=== PATIENT | male | born 1995 | race Hispanic/Latino ===

== ENCOUNTER 2023-06-04 15:49 | Emergency (ER) | payer SELFPAY ==
[2023-06-04] MEDS ORDERED: BUPIVACAINE 0.5% PF 10 ML VIAL ONE (16:05)
[2023-06-04] MEDS ORDERED: LIDOCAINE 1% MPF 5 ML VIAL ONE (16:05)
--- NOTE | 2023-06-04 17:00 | ER ---
Nurse's Notes [facility] Name: Zach Cadet Age: 28 yrs Sex: Male : 1995 Arrival Date: 06/04/2023 Time: 15:49 Bed 14 Private MD: Diagnosis: Laceration without foreign body of right index finger without damage to nail Presentation: 06/03 15:52 Chief complaint: EMS states: patient was passing metal scaffolding and has a laceration cp4 to the right index finger. Coronavirus screen: Client denies travel out of the [place] in the last 14 days. At this time, the client does not indicate any symptoms associated with coronavirus-19. Ebola Screen: Patient negative for fever greater than or equal to 101.5 degrees Fahrenheit, and additional compatible Ebola Virus Disease symptoms Patient denies exposure to infectious person. Patient denies travel to an Ebola-affected area in the 21 days before illness onset. No symptoms or risks identified at this time. Initial Sepsis Screen: Does the patient meet any 2 criteria? No. Patient's initial sepsis screen is negative. Does the patient have a suspected source of infection? No. Patient's initial sepsis screen is negative. Risk Assessment: Do you want to hurt yourself or someone else? Patient reports no desire to harm self or others. Onset of symptoms was June 04, 2023. 15:52 Method Of Arrival: EMS: [facility] 15:52 Acuity: PHI 4 cp4 Triage Assessment: 15:54 General: Appears uncomfortable, Behavior is calm, cooperative, appropriate for age. cp4 Pain: Complains of pain in dorsal aspect of distal phalanx of right index finger and dorsal aspect of middle phalanx of right index finger Pain currently is 8 out of 10 on a pain scale. Musculoskeletal: laceration Reports pain in dorsal aspect of distal phalanx of right index finger and dorsal aspect of middle phalanx of right index finger. Injury Description: Laceration sustained to dorsal aspect of distal phalanx of right index finger, dorsal aspect of middle phalanx of right index finger and right index fingernail. Historical: - Allergies: 15:54 No Known Allergies; cp4 - Immunization history:: Adult Immunizations up to date. - Infectious Disease History:: Denies. CDIFF, C. Auris, ESBL, MRSA (w/in 1 year), VRE (w/in 1 year), TB, . - Social history:: Smoking status: Patient denies any tobacco usage or history of. Screenin:57 [facility] ED Fall Risk Assessment (Adult) History of falling in the last 3 months, cp4 including since admission No falls in past 3 months (0 pts) Confusion or Disorientation No (0 pts) Intoxicated or Sedated No (0 pts) Impaired Gait No (0 pts) Mobility Assist Device Used No (0 pt) Altered Elimination No (0 pt) Score/Fall Risk Level 0 - 2 = Low Risk Oriented to surroundings, Maintained a safe environment, Assessed \T\ reinforced patient's understanding of fall precautions, Hourly rounding (assess needs \T\ fall precautionary measures) done. Abuse screen: Denies threats or abuse. Nutritional screening: No deficits noted. Tuberculosis screening: No symptoms or risk factors identified. Assessment: 15:57 Reassessment: No changes from previously documented assessment. General:. cp4 17:07 Reassessment: Patient advised by [facility] health safety specialist to go to their provider. Patient cp4 discharged. Vital Signs: 15:52 BP 125 / 86; Pulse 54; Resp 16; Temp 98; Pulse Ox 98% ; cp4 ED Course: 15:51 Patient arrived in ED. cp4 15:52 Lesley Phillips is Primary Nurse. cp4 15:52 Nancy Salmeron FNP-C is PHCP. kb 15:52 Sudarshan Cardozo MD is Attending Physician. kb 15:54 Triage completed. cp4 15:54 Arm band placed on left wrist. Patient placed in an exam room, on a stretcher. cp4 15:57 Bed in low position. Call light in reach. Side rails up X 1. Provided Education on: cp4 finger laceration. 15:57 No provider procedures requiring assistance completed. Maintain EMS IV. Dressing cp4 intact. Good blood return noted. Site clean \T\ dry. Gauge \T\ site: 20 G LAC. 17:08 intact, bleeding controlled, No redness/swelling at site. Pressure dressing applied. cp4 Administered Medications: 17:07 Not Given (Patient Refused): boostrix tdap0.5 ml IM once; as a single dose cp4 17:08 Not Given (Patient Refused): bupivacaine(0.5 %) 1 vials 10 ml Infiltration once cp4 17:08 Not Given (Patient Refused): lidocaine(1 %) 1 vials 5 ml Infiltration once; to bedside cp4 Medication: 15:57 VIS not applicable for this client. cp4 Outcome: 16:59 Discharge ordered by . enriqueta 17:08 Discharged to home ambulatory, cp4 17:08 Condition: stable 17:08 Discharge instructions given to patient, Instructed on discharge instructions, follow up and referral plans. Demonstrated understanding of instructions, follow-up care, 17:11 Patient left the ED. cp4 Signatures: Nancy Salmeron, JOSE R RECLAMATION FURNACE OPERATOR-Lesley Henning cp4
--- NOTE | 2023-06-04 17:00 | EDPHYS ---
Physician Documentation [facility] Name: Zach Cadet Age: 28 yrs Sex: Male : 1995 Arrival Date: 06/04/2023 Time: 15:49 Bed 14 Private MD: ED Physician Sudarshan Cardozo HPI: 06/03 16:10 This 28 yrs old Male presents to ER via EMS with complaints of Finger Injury. kb 16:10 Pt is a 28 year old male who presents for laceration to right index finger after kb getting it pinched between 2 pieces of metal. Denies any other injury. Full ROM of fingers. . Historical: - Allergies: 15:54 No Known Allergies; cp4 - Immunization history:: Adult Immunizations up to date. - Infectious Disease History:: Denies. CDIFF, C. Auris, ESBL, MRSA (w/in 1 year), VRE (w/in 1 year), TB, . - Social history:: Smoking status: Patient denies any tobacco usage or history of. ROS: 16:07 Constitutional: As per HPI kb Exam: 16:07 Constitutional: This is a well developed, well nourished patient who is awake, alert, kb and in no acute distress. Head/Face: Normocephalic, atraumatic. ENT: Moist Mucous membranes Cardiovascular: Regular rate Respiratory: Respirations even and unlabored. No increased work of breathing. Talking in full sentences MS/ Extremity: Pulses equal, no cyanosis. Neurovascular intact. Full, normal range of motion. Neuro: Awake and alert, GCS 15, oriented to person, place, time, and situation. Moves all extremities. Normal gait. 16:10 Skin: injury, laceration(s), the wound is approximately 1.5 cm(s), of the palmar kb aspect of distal phalanx of right index finger, that can be described as clean, no foreign body, irregular, without bleeding, Vital Signs: 15:52 BP 125 / 86; Pulse 54; Resp 16; Temp 98; Pulse Ox 98% ; cp4 MDM: 15:52 Patient medically screened. kb 16:10 Data reviewed: vital signs, nurses notes. kb 16:57 Differential diagnosis: superficial laceration, avulsion, amputation. Historians other kb than the Patient: EMS: [facility]. Counseling: I had a detailed discussion with the patient and/or guardian regarding the historical points, exam findings, and any diagnostic results supporting the discharge/admit diagnosis, the need for outpatient follow up, a family practitioner, to return to the emergency department if symptoms worsen or persist or if there are any questions or concerns that arise at home. ED course: I went in to perform procedure and pt states he would like to leave to go to the [facility] for repair. Does not want any other treatment at this time. [employer] staff at bedside [facility]. 06/03 15:53 Order name: Dressing - Wound; Complete Time: 16:16 kb 06/03 15:53 Order name: Gloves, Sterile: size 6; Complete Time: 16:16 kb 06/03 15:53 Order name: Prolene, Sutures: 4.0 prolene; Complete Time: 16:16 kb 06/03 15:53 Order name: Setup Suture Tray; Complete Time: 16:16 kb Administered Medications: 17:07 Not Given (Patient Refused): boostrix tdap0.5 ml IM once; as a single dose cp4 17:08 Not Given (Patient Refused): bupivacaine(0.5 %) 1 vials 10 ml Infiltration once cp4 17:08 Not Given (Patient Refused): lidocaine(1 %) 1 vials 5 ml Infiltration once; to bedside cp4 Disposition Summary: 06/04/23 16:59 Discharge Ordered Notes: Location: Home kb Condition: Stable kb Diagnosis - Laceration without foreign body of right index finger without damage to nail kb Followup: kb - With: Emergency Department - When: As needed - Reason: Worsening of condition Followup: kb - With: Private Physician - When: 2 - 3 days - Reason: Recheck today's complaints, Continuance of care, Re-evaluation by your physician Discharge Instructions: - Discharge Summary Sheet kb - Laceration Care, Adult, [id number] kb Forms: - Medication Reconciliation Form kb - Thank You Letter kb - Antibiotic Education kb - Prescription Opioid Use kb - Patient Portal Instructions kb - Leadership Thank You Letter kb - Work release form wm Signatures: Nancy Salmeron FNP-C FNP-Ckb Potter, Christina cp4
[2023-06-04 19:01] VITALS: BP 125/86; TEMP 98; O2SAT 98
== END 2023-06-04 17:11 | disposition home or self-care (01) ==
LOC: ER 15:49
DX: S61.210A Laceration without foreign body of right index finger without damage to nail, initial encounter (principal)
CPT/HCPCS: J2001

== ENCOUNTER 2023-06-04 20:51 | Emergency (ER) | payer SELFPAY ==
--- NOTE | 2023-06-04 21:29 | ER ---
Nurse's Notes [facility] Name: Zach Cadet Age: 28 yrs Sex: Male : 1995 Arrival Date: 06/04/2023 Time: 20:51 Bed 12 Private MD: Diagnosis: Laceration without foreign body of right index finger without damage to nail Presentation: 06/03 20:58 Chief complaint: Patient states: states injury to the right index finger. Was here cp4 earlier today and left to see a [place] doctor. States he doesn't think they fixed it right. Coronavirus screen: Client denies travel out of the [place] in the last 14 days. At this time, the client does not indicate any symptoms associated with coronavirus-19. Ebola Screen: Patient negative for fever greater than or equal to 101.5 degrees Fahrenheit, and additional compatible Ebola Virus Disease symptoms Patient denies exposure to infectious person. Patient denies travel to an Ebola-affected area in the 21 days before illness onset. No symptoms or risks identified at this time. Initial Sepsis Screen: Does the patient meet any 2 criteria? No. Patient's initial sepsis screen is negative. Does the patient have a suspected source of infection? No. Patient's initial sepsis screen is negative. Risk Assessment: Do you want to hurt yourself or someone else? Patient reports no desire to harm self or others. 20:58 Method Of Arrival: Ambulatory cp4 20:58 Acuity: PHI 4 cp4 21:46 Onset of symptoms was June 04, 2023 at 14:00. bm8 Triage Assessment: 21:00 General: Appears in no apparent distress. Behavior is calm, cooperative, appropriate cp4 for age. Pain: Complains of pain in dorsal aspect of distal phalanx of right index finger Pain currently is 9 out of 10 on a pain scale. Musculoskeletal: Reports pain in dorsal aspect of distal phalanx of right index finger. Injury Description: Laceration sustained to dorsal aspect of distal phalanx of right index finger. Historical: - Allergies: 21:00 No Known Allergies; cp4 - Immunization history:: Adult Immunizations Adult Immunizations up to date. - Infectious Disease History:: Denies. CDIFF, C. Auris, ESBL, MRSA (w/in 1 year), VRE (w/in 1 year), TB, . - Social history:: Smoking status: Patient denies any tobacco usage or history of. Screenin:15 [facility] ED Fall Risk Assessment (Adult) History of falling in the last 3 months, bm8 including since admission No falls in past 3 months (0 pts) Confusion or Disorientation No (0 pts) Intoxicated or Sedated No (0 pts) Impaired Gait No (0 pts) Mobility Assist Device Used No (0 pt) Altered Elimination No (0 pt) Score/Fall Risk Level 0 - 2 = Low Risk Oriented to surroundings, Maintained a safe environment, Educated pt \T\ family on fall prevention, incl call for assistance when getting out of bed. Abuse screen: Denies threats or abuse. Nutritional screening: No deficits noted. Tuberculosis screening: No symptoms or risk factors identified. Assessment: 21:15 General: Appears in no apparent distress. comfortable, Behavior is calm, cooperative, bm8 appropriate for age. Pain: Complains of pain in right hand. Neuro: No deficits noted. Level of Consciousness is awake, alert, obeys commands, Oriented to person, place, time, situation, Appropriate for age. Cardiovascular: Capillary refill < 3 seconds Patient's skin is warm and dry. Musculoskeletal: right hand index finger lac to tip of finger. previously repaired at work by [employer]. But pt is back due to insufficient care there. Vital Signs: 21:04 BP 131 / 64; Pulse 60; Resp 16; Temp 98; Pulse Ox 100% ; cp4 21:44 BP 116 / 67; Pulse 61; Resp 14; Temp 98; Pulse Ox 99% ; Pain 0/10; bm8 21:44 Pain Scale: Adult bm8 Renwick Coma Score: 21:15 Eye Response: spontaneous(4). Motor Response: obeys commands(6). Verbal Response: bm8 oriented(5). Total: 15. ED Course: 20:52 Patient arrived in ED. jj6 20:52 Nancy Salemron [facility]-C [facility]. kb 20:52 Choco Scott MD is Attending Physician. kb 20:59 Triage completed. cp4 21:00 Arm band placed on right wrist. Patient placed in an exam room, on a stretcher. cp4 21:15 Alexander Duncan, RN is Primary Nurse. bm8 21:15 Patient has correct armband on for positive identification. Bed in low position. Call bm8 light in reach. Side rails up X 1. Provided Education on: post er care. Pulse ox on. NIBP on. Door closed. Noise minimized. Visitors limited. Lights dimmed. 21:15 Assist provider with laceration repair on palmar aspect of distal phalanx of right bm8 index finger and palmar aspect of middle phalanx of right index finger that was 2.5 cm. or less using sutures. Set up tray. Performed by Nancy ODELL Dressed with Kerlix, Patient tolerated well. Patient did not have IV access during this emergency room visit. 21:44 Dressings: 4X4s X 1; right hand dressing applied over sutures with triple antibiotic bm8 ointment secured in place by nathalia. Administered Medications: No medications were administered Medication: 21:15 VIS not applicable for this client. bm8 Outcome: 21:29 Discharge ordered by . enriqueta 21:44 Discharged to home ambulatory, bm8 21:44 Condition: stable 21:44 Discharge instructions given to patient, Instructed on discharge instructions, follow up and referral plans. medication usage, safety practices, wound care, Demonstrated understanding of instructions, follow-up care, medications, 21:46 Patient left the ED. bm8 Signatures: Nancy Salmeron FNP-C FNP-Sharyn Isabel6 Lesley Phillips cp4 Alexander Duncan, RN RN bm8
--- NOTE | 2023-06-04 21:30 | EDPHYS ---
Physician Documentation [facility] Name: Zach Cadet Age: 28 yrs Sex: Male : 1995 Arrival Date: 06/04/2023 Time: 20:51 Bed 12 Private MD: ED Physician Choco Scott HPI: 06/03 21:35 This 28 yrs old Male presents to ER via Ambulatory with complaints of Finger kb Injury. 21:35 Patient is a 28-year-old male who got the tip of his right index finger pinched between kb 2 pieces of metal causing laceration/partial soft tissue amputation around 3 PM. Patient was seen here by me at time of incident but refused treatment at this facility at that time after safety personnel recommended he go to the company doctor for laceration repair. Patient comes back now because he is concerned that sutures were not done correctly. Complains that his skin is sticking up on 1 side and is not well-approximated. Requesting evaluation and revision.. Historical: - Allergies: 21:00 No Known Allergies; cp4 - Immunization history:: Adult Immunizations Adult Immunizations up to date. - Infectious Disease History:: Denies. CDIFF, C. Auris, ESBL, MRSA (w/in 1 year), VRE (w/in 1 year), TB, . - Social history:: Smoking status: Patient denies any tobacco usage or history of. ROS: 21:31 Constitutional: As per HPI kb Exam: 21:31 Constitutional: This is a well developed, well nourished patient who is awake, alert, kb and in no acute distress. Head/Face: Normocephalic, atraumatic. ENT: Moist Mucous membranes Cardiovascular: Regular rate Respiratory: Respirations even and unlabored. No increased work of breathing. Talking in full sentences MS/ Extremity: Pulses equal, no cyanosis. Neurovascular intact. Full, normal range of motion. Neuro: Awake and alert, GCS 15, oriented to person, place, time, and situation. Moves all extremities. Normal gait. 21:31 Skin: injury, laceration(s), the wound is approximately 1.5 cm(s), of the palmar aspect of proxima; phalanx of right index finger, that can be described as clean, no foreign body, irregular, without bleeding, Vital Signs: 21:04 BP 131 / 64; Pulse 60; Resp 16; Temp 98; Pulse Ox 100% ; cp4 21:44 BP 116 / 67; Pulse 61; Resp 14; Temp 98; Pulse Ox 99% ; Pain 0/10; bm8 21:44 Pain Scale: Adult bm8 Derian Coma Score: 21:15 Eye Response: spontaneous(4). Motor Response: obeys commands(6). Verbal Response: bm8 oriented(5). Total: 15. Procedures: 21:02 Nerve block: (digital) of palmar aspect of proxima; phalanx of right index finger kb Medication: Lidocaine 1% without epinephrine Marcaine 0.5%, Amount: 4 mls were injected, Effect: the patient has resolution of the pain, Set up for procedure. Performed by Nancy ODELL Patient tolerated well. 21:32 Suture/Staple removal: Removed 4 sutures, from palmar aspect of proxima; phalanx of kb right index finger. Laceration: 21:28 Wound Repair of 1.5cm ( 0.6in ) subcutaneous laceration to palmar aspect of distal kb phalanx of right index finger. Irregularly shaped.. Skin/tissue flap noted.. Distal neuro/vascular/tendon intact. Anesthesia: Digital block administered with 1% lidocaine. Wound prep: Extensive cleansing with hibiclenz by me, Wound irrigation with saline by wv. Skin closed with 7 5-0 Prolene using simple sutures and sterile technique. Patient tolerated well. MDM: 20:52 Patient medically screened. kb 21:32 Data reviewed: vital signs, nurses notes. kb 21:37 Differential diagnosis: Laceration, avulsion, amputation. Counseling: I had a detailed discussion with the patient and/or guardian regarding the historical points, exam findings, and any diagnostic results supporting the discharge/admit diagnosis, the need for outpatient follow up, a family practitioner, to return to the emergency department if symptoms worsen or persist or if there are any questions or concerns that arise at home. Administered Medications: No medications were administered Disposition: 06/04 07:29 Co-signature as Attending Physician, Choco Scott MD I agree with the assessment sp4 and plan of care. I reviewed the patient's care provided by the Advanced Practice Provider and agree with the diagnosis and treatment plan. Disposition Summary: 06/04/23 21:29 Discharge Ordered Condition: Stable kb Diagnosis - Laceration without foreign body of right index finger without damage to nail kb Followup: kb - With: Emergency Department - When: As needed - Reason: Worsening of condition Followup: kb - With: Private Physician - When: 2 - 3 days - Reason: Recheck today's complaints, Continuance of care, Re-evaluation by your physician Discharge Instructions: - Discharge Summary Sheet kb - Laceration Care, Adult, [id number] kb Forms: - Medication Reconciliation Form kb - Thank You Letter kb - Antibiotic Education kb - Prescription Opioid Use kb - Patient Portal Instructions kb - Leadership Thank You Letter kb Signatures: Nancy Salmeron, CHRISTI-C CHRISTI-Choco Souza MD MD sp4 Lesley Phillips cp4
[2023-06-05 01:45] VITALS: BP 116/67; TEMP 98; O2SAT 99
== END 2023-06-04 21:46 | disposition home or self-care (01) ==
LOC: ER 20:51
PROC: 0HQFXZZ Repair Right Hand Skin, External Approach (ICD-10-PCS; principal; 2023-06-04)
DX: S61.210A Laceration without foreign body of right index finger without damage to nail, initial encounter (principal)

== ENCOUNTER 2024-04-19 10:48 | Emergency (ER) | payer SELFPAY ==
[2024-04-19] MEDS ORDERED: IBUPROFEN 200 MG TAB PO ONE (11:19)
[2024-04-19] MEDS ORDERED: IBUPROFEN 400 MG TAB ONE (11:20)
[2024-04-19 11:43] LABS: Influenza A Ag Negative; Influenza B Ag Negative; SARS-CoV-2 Antigen Rapid Res Negative (Negative)
--- NOTE | 2024-04-19 11:48 | ER ---
Nurse's Notes [facility] Name: Zach Cadet Age: 28 yrs Sex: Male : 1995 Arrival Date: 04/19/2024 Time: 10:48 Bed 14 Private MD: None, None Diagnosis: Cough;Pain in throat;Fever, unspecified Presentation: 04/19 11:18 Chief complaint: Patient states: COUGH, CONGESTION WITH FLU LIKE SYMPTOMS SINCE FRIDAY. db 11:18 Coronavirus screen: Client denies travel out of the [place] in the last 14 days. At this db time, the client does not indicate any symptoms associated with coronavirus-19. Ebola Screen: Patient negative for fever greater than or equal to 101.5 degrees Fahrenheit, and additional compatible Ebola Virus Disease symptoms Patient denies exposure to infectious person. Patient denies travel to an Ebola-affected area in the 21 days before illness onset. No symptoms or risks identified at this time. 11:18 Method Of Arrival: Ambulatory db 11:18 Initial Sepsis Screen: Does the patient meet any 2 criteria? No. Patient's initial db sepsis screen is negative. Does the patient have a suspected source of infection? No. Patient's initial sepsis screen is negative. Risk Assessment: Do you want to hurt yourself or someone else? Patient reports no desire to harm self or others. Onset of symptoms was April 19, 2024. 11:18 Acuity: PHI 4 db Triage Assessment: 11:18 General: Appears in no apparent distress. comfortable, Behavior is calm, cooperative. db Pain: Denies pain. EENT: Reports nasal congestion. Neuro: Level of Consciousness is awake, alert, obeys commands, Oriented to person, place, time, situation. Cardiovascular: No deficits noted. Respiratory: Reports cough that is Airway is patent Respiratory effort is even, unlabored, Respiratory pattern is regular, symmetrical. Historical: - Allergies: 11:18 No Known Allergies; db - PMHx: 11:18 None; db - Immunization history:: Adult Immunizations unknown. - Infectious Disease History:: Denies. - Social history:: Smoking status: Patient denies any tobacco usage or history of. Screenin:[facility] ED Fall Risk Assessment (Adult) History of falling in the last 3 months, db including since admission No falls in past 3 months (0 pts) Confusion or Disorientation No (0 pts) Intoxicated or Sedated No (0 pts) Impaired Gait No (0 pts) Mobility Assist Device Used No (0 pt) Altered Elimination No (0 pt) Score/Fall Risk Level 0 - 2 = Low Risk Oriented to surroundings, Maintained a safe environment. Abuse screen: Denies threats or abuse. Denies injuries from another. Nutritional screening: No deficits noted. On. Tuberculosis screening: No symptoms or risk factors identified. Assessment: 11:37 Reassessment: SEE TRIAGE FOR INITIAL ASSESSMENT. db 12:37 Reassessment: Patient appears in no apparent distress at this time. Patient and/or db family updated on plan of care and expected duration. Pain level reassessed. Patient is alert, oriented x 3, equal unlabored respirations, skin warm/dry/pink. General: Appears in no apparent distress. comfortable, Behavior is calm, cooperative. Neuro: Level of Consciousness is awake, alert, obeys commands, Oriented to person, place, time, situation. Vital Signs: 11:18 BP 120 / 99; Pulse 94; Resp 18; Temp 101.2(O); Pulse Ox 98% on R/A; Weight 68.95 kg; db Height 5 ft. 8 in. ; 12:37 BP 116 / 63; Pulse 95; Resp 18; Temp 100.1; Pulse Ox 100% on R/A; db 11:18 Body Mass Index 23.11 (68.95 kg, 172.72 cm) db ED Course: 10:50 Patient arrived in ED. as 10:51 None, None is Private Physician. as 10:53 Edmundo Eagle DO is Attending Physician. ms3 11:18 Saloni Cohn, RN is Primary Nurse. db 11:18 Arm band placed on Patient placed in an exam room. db 11:21 COVID-19 Ag + Flu A+B Ag Sent. bc6 11:21 COVID swab sent to lab. Flu and/or RSV swab sent to lab. bc6 11:34 Triage completed. db 11:47 Zach Rios DO is Referral Physician. ms3 12:37 No provider procedures requiring assistance completed. Patient did not have IV access db during this emergency room visit. 12:37 Patient has correct armband on for positive identification. Bed in low position. Call db light in reach. Side rails up X 1. Provided Education on: DISCHARGE AND FOLLOWUP. Pulse ox on. NIBP on. Pillow given. Administered Medications: 11:24 Drug: Ibuprofen PO 600 mg PO once Route: PO; db 12:37 Follow up: Response: No adverse reaction; Temperature is decreased db Medication: 12:37 VIS not applicable for this client. db Outcome: 11:48 Discharge ordered by . ms3 12:37 Discharged to home ambulatory, db 12:37 Condition: stable 12:37 Discharge instructions given to patient, Instructed on discharge instructions, follow up and referral plans. Prescriptions given X 4, 12:39 Patient left the ED. db Signatures: Erica Norris Marcus, DO ms3 Saloin Cohn, RN RN db Alessandra Martinez 6 Corrections: (The following items were deleted from the chart) 12:39 12:37 BP 116 / 63; Pulse 95bpm; Resp 18bpm; Pulse Ox 100% RA; db db
--- NOTE | 2024-04-19 11:48 | EDPHYS ---
Physician Documentation [facility] Name: Zach Cadet Age: 28 yrs Sex: Male : 1995 Arrival Date: 04/19/2024 Time: 10:48 Bed 14 Private MD: None, None ED Physician Edmundo Eagle HPI: 04/19 11:31 This 28 yrs old Male presents to ER via Unassigned with complaints of Cough, ms3 Sneezing, Dizziness. 11:31 28-year-old male with no past medical history presents to the emergency department for ms3 headache and cough that is been ongoing for 2 days. Patient Dors is body aches, chills, sore throat. Patient rates his discomfort a 8/10. Patient states he took sumatriptan yesterday after a [facility] visit.. Historical: - Allergies: 11:18 No Known Allergies; db - PMHx: 11:18 None; db - Immunization history:: Adult Immunizations unknown. - Infectious Disease History:: Denies. - Social history:: Smoking status: Patient denies any tobacco usage or history of. ROS: 11:31 Cardiovascular: Negative for chest pain, and palpitations. ms3 11:31 MS/Extremity: Negative for injury and deformity, Skin: Negative for injury, rash, and discoloration, 11:31 Constitutional: Positive for body aches, 11:31 ENT: Positive for nasal discharge, sore throat, 11:31 Respiratory: Positive for cough, Exam: 11:31 Constitutional: This is a well developed, well nourished patient who is awake, alert, ms3 and in no acute distress. Chest/axilla: Normal chest wall appearance and motion. Nontender with no deformity. Cardiovascular: Regular rate and rhythm with a normal S1 and S2. No gallops, murmurs, or rubs. Normal PMI, no JVD. No pulse deficits. Respiratory: Lungs have equal breath sounds bilaterally, clear to auscultation and percussion. No rales, rhonchi or wheezes noted. No increased work of breathing, no retractions or nasal flaring. Skin: Warm, dry with normal turgor. Normal color with no rashes, no lesions, and no evidence of cellulitis. MS/ Extremity: Pulses equal, no cyanosis. Neurovascular intact. Full, normal range of motion. Vital Signs: 11:18 BP 120 / 99; Pulse 94; Resp 18; Temp 101.2(O); Pulse Ox 98% on R/A; Weight 68.95 kg; db Height 5 ft. 8 in. ; 12:37 BP 116 / 63; Pulse 95; Resp 18; Temp 100.1; Pulse Ox 100% on R/A; db 11:18 Body Mass Index 23.11 (68.95 kg, 172.72 cm) db MDM: 11:05 Medical Screening Exam initiated ms3 11:31 Differential Diagnosis: Bronchitis Influenza Upper Respiratory Infection Viral Syndrome.ms3 11:49 Data reviewed: vital signs, nurses notes, lab test result(s), and as a result, I will ms3 discharge patient. I considered the following discharge prescriptions or medication management in the emergency department Medications were administered in the Emergency Department. See MAR. Counseling: I had a detailed discussion with the patient and/or guardian regarding the historical points, exam findings, and any diagnostic results supporting the discharge/admit diagnosis, lab results, the need for outpatient follow up, to return to the emergency department if symptoms worsen or persist or if there are any questions or concerns that arise at home. ED course: Discussed negative flu and COVID with patient. Discussed [id number] Tylenol and ibuprofen treatment along with hydration. All questions were answered. Patient to follow-up Dr. Rios in 2 to 3 days. Patient understands agrees with plan. All questions were answered. Return precautions discussed include worsening symptoms, or any other concerns.. 04/19 10:59 Order name: COVID-19 Ag + Flu A+B Ag; Complete Time: 11:44 ms3 Administered Medications: 11:24 Drug: Ibuprofen PO 600 mg PO once Route: PO; db 12:37 Follow up: Response: No adverse reaction; Temperature is decreased db Disposition Summary: 04/19/24 11:48 Discharge Ordered Notes: Location: Home ms3 Condition: Stable ms3 Diagnosis - Cough ms3 - Pain in throat ms3 - Fever, unspecified ms3 Followup: ms3 - With: Zach Rios DO - When: 2 - 3 days - Reason: Recheck today's complaints Discharge Instructions: - Discharge Summary Sheet ms3 - Fever, Adult ms3 - Sore Throat ms3 - Upper Respiratory Infection, Adult, [id number] ms3 Forms: - Work release form aa5 - Medication Reconciliation Form ms3 - Antibiotic Education ms3 - Prescription Opioid Use ms3 - Patient Portal Instructions ms3 - Leadership Thank You Letter ms3 Prescriptions: - Flonase Allergy Relief 50 mcg/actuation Nasal spray, suspension - spray 2 spray INTRANASAL route daily administer into each nostril; 1 unit; ms3 Refills: 0, Product Selection Permitted - Ibuprofen 600 mg Oral Tablet - take 1 tablet ORAL route every 6 hours As needed take with food; 30 tablet; ms3 Refills: 0, Product Selection Permitted - Claritin 10 mg Oral Tablet - take 1 tablet ORAL route once daily As needed; 30 tablet; Refills: 0, Product ms3 Selection Permitted - benzonatate 200 mg Oral capsule - take 1 capsule ORAL route 3 times per day as needed; 20 capsule; Refills: 0, ms3 Product Selection Permitted Signatures: Dispatcher [employer] Edmundo Grider DO DO ms3 Saloni Cohn, RN RN db
[2024-04-19 12:44] VITALS: BP 116/63; TEMP 100.1; O2SAT 100
== END 2024-04-19 12:39 | disposition home or self-care (01) ==
LOC: ER 10:48
DX: R05.9 Cough, unspecified (principal); R50.9 Fever, unspecified; R07.0 Pain in throat; Z11.52 Encounter for screening for COVID-19
CPT/HCPCS: 36415; 87428; 99284